=== PATIENT | female | born 1955 | race Hispanic/Latino ===

== ENCOUNTER → 2024-05-12 | Outpatient (CLI) | payer OTHER ==
[~2024-05-12] MED LIST: CALC-910 PO; OMEG-148 PO; OMEP20CA12 PO; SIMV-43 PO
[2024-05-12 14:23] LABS: CREATININE 0.9 mg/dL (0.5-1.0)
== END | disposition home or self-care (01) ==
LOC: LAB 13:52
PROVIDERS: ATTEND Otolaryngology Plastic Surgery within the Head & Neck
DX: H93.12 Tinnitus, left ear (principal); H90.3 Sensorineural hearing loss, bilateral
CPT/HCPCS: 36415; 82565; 84520

== ENCOUNTER → 2024-05-19 | Outpatient (CLI) | payer OTHER ==
[~2024-05-19] MED LIST changes: +GADOTERATE MEGLUMINE 10 MMOL/20 ML VIAL IV ONE
== END | disposition home or self-care (01) ==
LOC: RAH 10:44
PROVIDERS: ATTEND Otolaryngology Plastic Surgery within the Head & Neck
DX: H90.3 Sensorineural hearing loss, bilateral (principal); H93.12 Tinnitus, left ear
CPT/HCPCS: 70553; A9575